=== PATIENT | male | born 1990 ===

== ENCOUNTER 2016-05-20 11:28 | Day surgery (SDC) | payer OTHER ==
[2016-05-19 09:10] VITALS: BMI 20.5
[2016-05-20] MEDS ORDERED: Bupivacaine 0.5% Inj(30mL) ONE (12:16)
[2016-05-20] MEDS ORDERED: Midazolam 2 MG/2 ML VIAL ONE ×2 (12:53)
[2016-05-20] MEDS ORDERED: Propofol 10 mg/ml Inj (20 ML) ONE (12:53)
[2016-05-20] MEDS ORDERED: ePHEDrine 50 mg/ml Inj ONE (12:53)
[2016-05-20] MEDS ORDERED: Lactated Ringer's 1,000 ML IV ONE (12:53)
[2016-05-20] MEDS ORDERED: Succinylcholine 200 mg/10 ml Inj IV ONE (12:53)
[2016-05-20] MEDS ORDERED: Lidocaine 1% w Epi 1:100,000 Inj INJ ONE (13:15)
[2016-05-20] MEDS ORDERED: Oxycodone/Acetaminophen 5/325 mg Tab PO PRN (13:47)
--- NOTE | 2016-05-20 15:50 | PCM.SURG1 ---
Surgeon's Initial Post Op Note - Surgeon's Notes Surgeon: Dr. Coleman Trainman: Dr. Allen PGY-1 Type of Anesthesia: General LMA Pre-Operative Diagnosis: lipoma of scalp Operative Findings: see operative report Post-Operative Diagnosis: see operative report Operation Performed: excision of lipoma of scalp Specimen/Specimens Removed: lipoma Estimated Blood Loss: EBL {In ML}: 10 Blood Products Given: N/A Drains Used: No Drains Post-Op Condition: Good Date of Surgery/Procedure: 05/20/16 Time of Surgery/Procedure: 13:00
--- NOTE | 2016-05-20 16:01 | CP.SDSHP ---
Same Day Surgery H & P - Allergies Allergies: Allergies No Known Allergies Allergy (Verified 01/31/16 09:37) Short Stay Discharge - Short Stay Discharge Admitting Diagnosis/Reason for Visit: L72.3 Disposition: HOME/ ROUTINE Medications: Acetaminophen [Tylenol 325mg tab] 325 mg PO Q4H PRN #100 tab PRN Reason: Pain, Moderate (4-7) Referrals: Arlen Rodarte MD [Primary Care Provider] - Follow-up: [facility] Progress Note/Discharge Note with Instructions: No swelling or bleeding. Stable postop
--- NOTE | 2016-05-20 16:13 | OP ---
PROCEDURE DATE: 05/20/2016 SURGEON: Dr. Coleman. [employer] MECH[employer]IC: Dr. Allen. ANESTHESIA: Local with IV sedation. PREOPERATIVE DIAGNOSIS: Lipoma of the scalp. POSTOPERATIVE DIAGNOSIS: Lipoma of the scalp. PROCEDURE: Excision, lipoma of scalp. DESCRIPTION OF OPERATION: With the patient in the supine position and the head turned to the left, t he right posterior scalp was prepped and draped in usual sterile manner. There was a 1 inch soft sub cutaneous swelling noted with no central punctum and the skin surrounding this was infiltrated with 1 % lidocaine with epinephrine. A transverse incision was made over the mass and, upon passing through the full thickness of skin, a slightly lobulated yellow mass with the gross appearance of a lipoma w as identified. This was bluntly from the surrounding tissue and excised with minimal attac hment noted. The operative site was examined for hemostasis and closure was performed with running s ubcuticular sutures of 4-0 Monocryl and Dermabond. The patient tolerated the procedure well and chaves sferred to recovery room in stable condition. Estimated blood loss for the procedure was 1 mL. Danielle Coleman MD cc: 58 TT: 05/20/2016 16:13:11 wv
[2016-05-20 16:20] VITALS: O2SAT 100
[2016-05-20 16:22] VITALS: BP 108/67; PULSE 62; RESP 18; TEMP 97.2
== END 2016-05-20 15:05 | disposition home or self-care (01) ==
LOC: H.OPSURG 11:28
PROVIDERS: ATTEND Specialist
DX: D18.01 Hemangioma of skin and subcutaneous tissue (principal)